=== PATIENT | male | born 1985 | race African-American/Black ===

== ENCOUNTER 2020-03-13 12:56 | Emergency (ER) | payer OTHER | END 2020-03-13 15:00 | disposition other institution (70) | LOC: ED 12:56 | DX: Z02.89 Encounter for other administrative examinations (principal) ==

== ENCOUNTER 2020-03-13 12:56 | Emergency (ER) | payer OTHER ==
[~2020-03-13] VITALS: Ht 172.7 cm; Wt 65.8 kg
[2020-03-13 13:08] VITALS: Ht 172.7 cm; Wt 65.8 kg
[2020-03-13 15:14] VITALS: BP 124/84
== END 2020-03-13 15:00 | disposition other institution (70) ==
LOC: ED 12:56
DX: E11.65 Type 2 diabetes mellitus with hyperglycemia (principal); F15.10 Other stimulant abuse, uncomplicated
CPT/HCPCS: 82962; J1815